=== PATIENT | female | born 1950 | race Caucasian/White ===

== ENCOUNTER 2023-07-13 16:30 | Outpatient (RCR) | payer MEDICARE, BC, SELFPAY | END 2023-11-10 23:59 | disposition home or self-care (01) | PROVIDERS: PCP Family Medicine; Referring Provider Family Medicine; Visit Provider Family Medicine | DX: M70.50 Other bursitis of knee, unspecified knee (principal); Z51.89 Encounter for other specified aftercare | CPT/HCPCS: 97035; 97110; 97140; 97162; 97760 ==

== ENCOUNTER 2024-11-01 12:45 | Emergency (ER) | payer OTHER, MEDICARE, BC, SELFPAY ==
[2024-11-01 12:53] VITALS: BP 171/80; PULSE 64; TEMP 35.7; O2SAT 97; BMI 31.1
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
[2024-11-01 13:52] LABS: Basophils Absolute Auto 0.02 K/uL (0.00-0.30); Basophils Percent Auto 0.3 % (0.0-3.0); Eosinophils Absolute Auto 0.05 K/uL (0.00-0.50); Eosinophils Percent Auto 0.8 % (0.0-7.0); Hematocrit 43.9 % (33.0-51.0); Hemoglobin* 13.9 gm/dL (12.0-16.0); Immature Granulocytes Abs Auto 0.05 K/uL (0.00-0.30); Immature Granulocytes Pct Auto 0.8 %; Lymphocytes Percent Auto 17.9 % (20-44); Mean Corpuscular HGB Conc 32 gm/dL (32-36); Mean Corpuscular Hemoglobin 29 pg (26-34); Mean Corpuscular Volume 91 fL (80-100); Monocytes Percent Auto 5.6 % (0.0-11.0); Neutrophils Percent Auto 74.6 % (42.0-72.0); Platelet Count* 173 K/uL (140-440); RDW Coefficient of Variation % 13.1 % (11.5-15.5); Red Blood Count 4.82 m/uL (4.00-5.20)
[2024-11-01 14:35] LABS: Slide Review Reflex No
--- NOTE | 2024-11-01 15:02 | CRLHL7_ITS ---
For Patients: As a result of the Century Cures Act, medical imaging exams and procedure reports are released immediately into your electronic medical record. You may view this report before your referring provider. If you have questions, please contact your health care provider. EXAM: CT OF THE LEFT KNEE, WITHOUT CONTRAST CLINICAL INDICATION: Knee pain following injury. Abnormal x-ray. COMPARISON STUDIES: 11/01/2024 radiographs. TECHNICAL: Non-contrast CT of the knee with axial images. Sagittal oblique and coronal oblique reformatted images were created. FINDINGS: OSSEOUS STRUCTURES: Femur: No fracture. Tibia: Small acute nondisplaced impaction fracture of the lateral aspect of the lateral tibial plateau measures 1.1 cm RL x 1.3 cm AP and extends up to 0.7 cm distal to the articular surface. No incongruity at the articular surface. Fibula: No fracture. Patella: No fracture. JOINT SPACE: Knee Joint: Small knee joint effusion. No lipohemarthrosis. No popliteal cyst. Medial Compartment: Mild medial compartment narrowing with mild hypertrophic change and subchondral cystic change. Lateral Compartment: Mild hypertrophic change. No subchondral cystic change or subchondral sclerosis. Patellofemoral Compartment: Mild hypertrophic change. No subchondral cystic change or subchondral sclerosis. EXTENSOR MECHANISM: Distal Quadriceps Tendon: No tear or tendinopathy. Patellar Tendon: No tear or tendinopathy. Patellar Retinaculum: Normal. Patellar Alignment: No tilt or subluxation. SOFT TISSUES: No subcutaneous edema, fluid collection or hematoma. MUSCLES AND TENDONS: No intramuscular hematoma. No muscle atrophy. NEUROVASCULAR STRUCTURES: No abnormality of the visualized neurovascular structures. IMPRESSION: 1. Small nondisplaced impaction fracture of the lateral aspect of the lateral tibial plateau. 2. Small knee joint effusion. 3. Mild tricompartmental osteoarthritis. Please note that all CT scans at this facility use dose modulation, iterative reconstruction, and/or weight-based dosing when appropriate to reduce radiation dose to as low as reasonably achievable. Dictated by Alfredo Aleman MD @ 11/01/2024 3:33:54 PM (Electronically Signed)
[2024-11-01 15:24] LABS: Chloride* 109 mmol/L (96-114)
[2024-11-01 15:25] LABS: Potassium* 4.3 mmol/L (3.6-5.1)
[2024-11-01 15:27] LABS: Creatinine* 0.7 mg/dL (0.5-1.5); Est. Creatinine Clearance* 40.22; Estimated Glomerular Filt Rate 92 ml/min
[2024-11-01 15:28] LABS: Anion Gap 8 mEq/L (7-15); Blood Urea Nitrogen* 9 mg/dL (7-30); Calcium* 10.5 mg/dL (8.4-10.6); Carbon Dioxide* 22 mmol/L (20-32); Glucose* 98 mg/dL (60-115); Sodium* 139 mmol/L (135-149)
--- NOTE | 2024-11-01 16:22 | ED.NURSE ---
Patient discharged home with crutches
[2024-11-01 16:39] VITALS: BP 137/74
== END 2024-11-01 16:41 | disposition home or self-care (01) ==
PROVIDERS: Emergency Provider Emergency Medicine; PCP Family Medicine
DX: S82.109A Unspecified fracture of upper end of unspecified tibia, initial encounter for closed fracture (principal); S50.02XA Contusion of left elbow, initial encounter; V09.20XA Pedestrian injured in traffic accident involving unspecified motor vehicles, initial encounter
CPT/HCPCS: 36415; 70450; 71260; 73070; 73562; 73700; 74177; 80048; 85025; 86850; 86900; 86901; 99284; 99291; Q9967

== ENCOUNTER 2025-02-07 10:00 | Outpatient (RCR) | payer OTHER, SELFPAY ==
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
== END 2025-05-10 10:15 | disposition home or self-care (01) ==
PROVIDERS: PCP Family Medicine; Visit Provider Orthopaedic Surgery Sports Medicine
DX: S82.142A Displaced bicondylar fracture of left tibia, initial encounter for closed fracture (principal); V09.9XXA Pedestrian injured in unspecified transport accident, initial encounter; M25.562 Pain in left knee; Z51.89 Encounter for other specified aftercare
CPT/HCPCS: 97110; 97140; 97161

== ENCOUNTER 2025-04-06 10:16 | Outpatient (CLI) | payer MEDICARE, BC, SELFPAY ==
--- NOTE | 2025-04-06 11:22 | P.ANES_ITS ---
Anesthesia Charges Start Date/Time Anesthesia Start Date: 04/06/25 Anesthesia Start Time: 11:00 Stop Date/Time Anesthesia Stop Date: 04/06/25 Anesthesia Stop Time: 11:19 Summary Extremes of Age - Over 70 or under 1: WELDING MACHINE OPERATOR HELPER GAS Coding CPT Codes CPT Codes: LETICIA LWR INTST NDSC NOS - 63500 ([id number]) P2 - PATIENT W/MILD SYST DISEASE, QK - GREEN CHAIN OFFBEARER 2-4 CNCRNT ANES PROC, QX - WELDING MACHINE OPERATOR HELPER GAS SVC W/ MD MED DIRECTION Additional Codes: Summary - Extremes of Age - Over 70 or under 1: WELDING MACHINE OPERATOR HELPER GAS ([id number])
--- NOTE | 2025-04-06 11:22 | W.ANESCHARGE ---
Anesthesia Charges Start Date/Time Anesthesia Start Date: 04/06/25 Anesthesia Start Time: 11:00 Stop Date/Time Anesthesia Stop Date: 04/06/25 Anesthesia Stop Time: 11:19 Summary Extremes of Age - Over 70 or under 1: NEON TUBE PUMPER Coding CPT Codes CPT Codes: LETICIA LWR INTST NDSC NOS - 78674 ([id number]) P2 - PATIENT W/MILD SYST DISEASE, QK - EXTERNAL GRINDER 2-4 CNCRNT ANES PROC, QX - NEON TUBE PUMPER SVC W/ MD MED DIRECTION Additional Codes: Summary - Extremes of Age - Over 70 or under 1: NEON TUBE PUMPER ([id number])
--- NOTE | 2025-04-06 11:45 | W.ANESCHARGE ---
Anesthesia Charges Start Date/Time Anesthesia Start Date: 04/06/25 Anesthesia Start Time: 11:00 Stop Date/Time Anesthesia Stop Date: 04/06/25 Anesthesia Stop Time: 11:19 Summary Extremes of Age - Over 70 or under 1: MDA Coding CPT Codes CPT Codes: ANES LWR INTST NDSC NOS - 41318 ([id number]) QK - SUPERVISOR FILM PROCESSING 2-4 CNCRNT ANES PROC, QX - CLOUD ARCHITECT SVC W/ MD MED DIRECTION, P2 - PATIENT W/MILD SYST DISEASE Additional Codes: Summary - Extremes of Age - Over 70 or under 1: MDA ([id number])
== END 2025-04-06 10:17 | disposition home or self-care (01) ==
LOC: OP CLINIC 10:19
PROVIDERS: PCP Family Medicine; Visit Provider Internal Medicine Gastroenterology
DX: Z12.11 Encounter for screening for malignant neoplasm of colon (principal); Z86.0101 Personal history of adenomatous and serrated colon polyps; D12.0 Benign neoplasm of cecum
CPT/HCPCS: 00811; 45385; 88305; 99100; J2704